=== PATIENT | female | born 1935 | race Caucasian/White ===

== ENCOUNTER 2018-05-12 21:36 | Inpatient (IN) | payer MEDICARE, MEDICAID ==
[~2018-05-12] VITALS: Ht 157.5 cm; Wt 53.4 kg
[2018-05-12 22:12] LABS: Basophils # (auto) 0 uL; Basophils % (auto) 0.6 % (0.0-2.0); Eosinophils # (auto) 0.2 uL; Eosinophils % (auto) 3.5 % (0.0-7.0); Hematocrit 42.5 % (36.0-46.0); Hemoglobin 14.6 g/dL (12.2-16.2); Lymphocytes # (auto) 0.6 uL; Lymphocytes % (auto) 12.7 % (10.0-50.0); Mean Corpuscular Hemoglobin 34.7 pg (28.0-32.0); Mean Corpuscular Hgb Conc. 34.2 g/dL (32.0-36.0); Mean Corpuscular Volume 101.4 fL (80.0-100.0); Monocytes # (auto) 0.4 uL; Monocytes % (auto) 7.8 % (0.0-12.0); Neutrophils # (auto) 3.6 uL; Neutrophils % (auto) 75.4 % (37.0-80.0); Nucleated Red Blood Cells % 0.2 %; Platelet Count (auto) 142 10^3/uL (140-450); Red Blood Cells 4.19 10^6/uL (4.0-5.20); Red Cell Distribution Width 12.4 % (11.8-14.3); White Blood Cell 4.8 10^3/uL (4.4-10.8)
[2018-05-12 22:34] LABS: Albumin 2.8 g/dL (3.4-5.0); BUN/Creatinine Ratio 22.6; Calcium 7.7 mg/dL (8.5-10.1); Potassium 3.8 mmol/L (3.5-5.1)
[2018-05-12 22:39] LABS: Bilirubin, Total 2.1 mg/dL (0.2-1.0); Total Protein 6.8 g/dL (6.4-8.2)
[2018-05-13] MEDS ORDERED: ALBUTEROL SULF 2.5 MG/0.5ML(0.5%) NEB SOLN HHN STA (02:05)
[2018-05-13] MEDS ORDERED: IPRATROPIUM BROM 0.5 MG/2.5ML INH SOL NEB ONE (02:15)
[2018-05-13] MEDS ORDERED: cefTRIAXone 1GM/10ml IVPUSH 10 ML IV ONE (02:15)
[2018-05-13] MEDS ORDERED: LEVOFLOXACIN 250 MG TAB PO ONE (02:15)
[2018-05-13] MEDS ORDERED: methylPREDNISolone SOD SUCC 125 MG/2 ML VL IV ONE (02:15)
[2018-05-13] MEDS ORDERED: TEMAZEPAM 15 MG CAP PO PRN (04:30)
[2018-05-13] MEDS ORDERED: SODIUM CHLORIDE 0.9% 1,000 ML IV ONE (04:30)
[2018-05-13] MEDS ORDERED: ACETAMINOPHEN 500 MG TAB PO PRN (04:30)
[2018-05-13] MEDS ORDERED: ONDANSETRON HCL 4 MG/2 ML VIAL IV PRN (04:30)
[2018-05-13] MEDS ORDERED: LORazepam 2MG/ML-1ML VIAL IV PRN (04:30)
[2018-05-13] MEDS ORDERED: ALBUTEROL SULF 2.5 MG/0.5ML(0.5%) NEB SOLN NEB PRN (04:45)
[2018-05-13 05:42] LABS: Urine Bacteria NONE SEEN /hpf (None Seen); Urine Blood Negative /uL (Negative); Urine Specific Gravity 1.027 (1.001-1.035); Urine WBC 3 /hpf (0 - 5)
[2018-05-13] MEDS: ALBUTEROL SULF 2.5 MG/0.5ML(0.5%) NEB SOLN NEB SCH ×4 (07:35→23:34)
[2018-05-13] MEDS: IPRATROPIUM BROM 0.5 MG/2.5ML INH SOL NEB SCH ×4 (07:35→23:34)
[2018-05-13 08:47] LABS: Basophils # (auto) 0 uL; Basophils % (auto) 0.2 % (0.0-2.0); Eosinophils # (auto) 0 uL; Eosinophils % (auto) 0.8 % (0.0-7.0); Hematocrit 44.3 % (36.0-46.0); Hemoglobin 14.7 g/dL (12.2-16.2); Lymphocytes # (auto) 0.5 uL; Lymphocytes % (auto) 12.4 % (10.0-50.0); Mean Corpuscular Hemoglobin 33.8 pg (28.0-32.0); Mean Corpuscular Hgb Conc. 33.2 g/dL (32.0-36.0); Mean Corpuscular Volume 101.8 fL (80.0-100.0); Monocytes # (auto) 0.3 uL; Monocytes % (auto) 7.1 % (0.0-12.0); Neutrophils # (auto) 3.3 uL; Neutrophils % (auto) 79.5 % (37.0-80.0); Nucleated Red Blood Cells % 0.1 %; Platelet Count (auto) 139 10^3/uL (140-450); Red Blood Cells 4.35 10^6/uL (4.0-5.20); Red Cell Distribution Width 12.8 % (11.8-14.3); White Blood Cell 4.1 10^3/uL (4.4-10.8)
[2018-05-13] MEDS: PANTOPRAZOLE 40 MG TAB PO SCH (08:55)
[2018-05-13] MEDS: PHENYTOIN SODIUM 100 MG CAP PO SCH ×3 (08:55→22:00)
[2018-05-13 09:02] LABS: Calcium 7.5 mg/dL (8.5-10.1)
[2018-05-13 09:12] LABS: BUN/Creatinine Ratio 22.9
[2018-05-13] MEDS: LEVOTHYROXINE SODIUM 25 MCG TAB PO SCH (09:12)
[2018-05-13] MEDS: CARBIDOPA W LEVODOPA 25/100mg TABLET PO SCH ×3 (09:12→22:01)
[2018-05-13] MEDS: AZITHROMYCIN 500MG/ 250ML 250 ML IV SCH (10:22)
[2018-05-13] MEDS: LEVETIRACETAM 500 MG TAB PO SCH ×2 (10:22→22:01)
[2018-05-13 17:00] VITALS: BP 115/54
[2018-05-13 17:14] VITALS: BP 159/87
[2018-05-13] MEDS ORDERED: HYDR-4683 PO (17:20)
[2018-05-13] MEDS ORDERED: BACL10TA PO (17:20)
[2018-05-13] MEDS ORDERED: PHE100C PO (17:20)
[2018-05-13] MEDS ORDERED: MULT1TAB61 PO (17:20)
[2018-05-13] MEDS ORDERED: CYAN1TAB14 PO (17:20)
[2018-05-13] MEDS ORDERED: SENN1TAB14 PO (17:20)
[2018-05-13] MEDS ORDERED: CARB25TA22 PO (17:20)
[2018-05-13] MEDS ORDERED: LEVO50TA7 PO (17:20)
[2018-05-13] MEDS ORDERED: SULF-92 PO (17:20)
[2018-05-13] MEDS ORDERED: DIPH2.5T73 PO (17:20)
[2018-05-13] MEDS ORDERED: LACT10SO3 PO (17:20)
[2018-05-13] MEDS ORDERED: LEVE100020 PO (17:20)
[2018-05-13] MEDS ORDERED: ALEN1TAB32 PO (17:20)
[2018-05-13] MEDS ORDERED: PANT1INJ3 IV (17:20)
[2018-05-13] MEDS ORDERED: DOCU100T15 PO (17:20)
[2018-05-13] MEDS ORDERED: LATA0.0015 OP (17:20)
[2018-05-13] MEDS ORDERED: PANT40TA2 PO (17:20)
[2018-05-13 18:00] VITALS: BP 115/54
[2018-05-13 22:00] VITALS: BP 125/72
[2018-05-13] MEDS: BACLOFEN 10 MG TAB PO SCH (22:01)
[2018-05-14 05:00] VITALS: BP 115/63
[2018-05-14] MEDS: CARBIDOPA W LEVODOPA 25/100mg TABLET PO SCH ×3 (06:07→21:53)
[2018-05-14] MEDS: PHENYTOIN SODIUM 100 MG CAP PO SCH ×3 (06:07→21:53)
[2018-05-14] MEDS: LEVOTHYROXINE SODIUM 25 MCG TAB PO SCH (06:07)
[2018-05-14] MEDS: ALBUTEROL SULF 2.5 MG/0.5ML(0.5%) NEB SOLN NEB SCH ×3 (06:20→18:06)
[2018-05-14] MEDS: IPRATROPIUM BROM 0.5 MG/2.5ML INH SOL NEB SCH ×3 (06:20→18:06)
[2018-05-14] MEDS: LEVETIRACETAM 500 MG TAB PO SCH ×2 (08:49→21:53)
[2018-05-14] MEDS: AZITHROMYCIN 500MG/ 250ML 250 ML IV SCH (08:50)
[2018-05-14] MEDS: PANTOPRAZOLE 40 MG TAB PO SCH (08:57)
[2018-05-14 09:00] VITALS: BP 111/69
[2018-05-14] MEDS ORDERED: cefTRIAXone 1GM/10ml IVPUSH 10 ML IV SCH (09:00)
[2018-05-14] MEDS ORDERED: LEVOFLOXACIN 500 MG TAB PO ONE (11:15)
[2018-05-14 13:00] VITALS: BP 115/72
[2018-05-14 17:00] VITALS: BP 114/75
[2018-05-14] MEDS: BACLOFEN 10 MG TAB PO SCH (21:53)
[2018-05-14 22:02] VITALS: BP 123/69
[2018-05-14 23:26] VITALS: BP 124/67
[2018-05-15] MEDS: ALBUTEROL SULF 2.5 MG/0.5ML(0.5%) NEB SOLN NEB SCH ×4 (00:06→18:32)
[2018-05-15] MEDS: IPRATROPIUM BROM 0.5 MG/2.5ML INH SOL NEB SCH ×4 (00:06→18:32)
[2018-05-15 04:53] VITALS: BP 120/71
[2018-05-15 05:15] LABS: Basophils # (auto) 0 uL; Eosinophils # (auto) 0.3 uL; Eosinophils % (auto) 3.6 % (0.0-7.0); Lymphocytes # (auto) 1.3 uL; Neutrophils # (auto) 4.9 uL
[2018-05-15 05:16] LABS: Basophils % (auto) 0.2 % (0.0-2.0); Hematocrit 40.5 % (36.0-46.0); Hemoglobin 14.1 g/dL (12.2-16.2); Lymphocytes % (auto) 17.1 % (10.0-50.0); Mean Corpuscular Hgb Conc. 34.8 g/dL (32.0-36.0); Mean Corpuscular Volume 100.6 fL (80.0-100.0); Monocytes % (auto) 13.3 % (0.0-12.0); Neutrophils % (auto) 65.8 % (37.0-80.0); Nucleated Red Blood Cells % 0.1 %; Platelet Count (auto) 171 10^3/uL (140-450); Red Blood Cells 4.02 10^6/uL (4.0-5.20); Red Cell Distribution Width 12.7 % (11.8-14.3); White Blood Cell 7.4 10^3/uL (4.4-10.8)
[2018-05-15 05:39] LABS: Albumin 2.3 g/dL (3.4-5.0); Bilirubin, Direct 3.5 mg/dL (0-0.2); Bilirubin, Total 4.1 mg/dL (0.2-1.0); Magnesium 2.3 mg/dL (1.6-2.6); Total Protein 6.3 g/dL (6.4-8.2)
[2018-05-15] MEDS: PHENYTOIN SODIUM 100 MG CAP PO SCH ×3 (06:26→22:39)
[2018-05-15] MEDS: LEVOTHYROXINE SODIUM 25 MCG TAB PO SCH (06:27)
[2018-05-15] MEDS: CARBIDOPA W LEVODOPA 25/100mg TABLET PO SCH ×3 (06:27→22:39)
[2018-05-15 08:21] LABS: BUN/Creatinine Ratio 29.5; Calcium 7.5 mg/dL (8.5-10.1); Potassium 4.2 mmol/L (3.5-5.1)
[2018-05-15 09:00] VITALS: BP 116/67
[2018-05-15] MEDS ORDERED: LEVOFLOXACIN 250 MG TAB PO ONE (09:00)
[2018-05-15] MEDS ORDERED: SOD CHL 0.45% 1,000 ML IV ONE (09:00)
[2018-05-15] MEDS ORDERED: LEVOFLOXACIN 250 MG TAB PO SCH (10:00)
[2018-05-15] MEDS ORDERED: LEVOFLOXACIN 500 MG TAB PO SCH (10:00)
[2018-05-15] MEDS: PANTOPRAZOLE 40 MG TAB PO SCH (10:09)
[2018-05-15] MEDS: LEVETIRACETAM 500 MG TAB PO SCH ×2 (10:10→22:39)
[2018-05-15] MEDS ORDERED: IOHEXOL 350 MG/ML 100ML IJ ONE (11:09)
[2018-05-15 13:00] VITALS: BP_SYST 122; BP_SYST 136; BP_DIAS 66; BP_DIAS 71
[2018-05-15 17:00] VITALS: BP 126/67
[2018-05-15 22:00] VITALS: BP 119/68
[2018-05-15] MEDS: BACLOFEN 10 MG TAB PO SCH (22:39)
[2018-05-15 23:40] VITALS: BP 115/54
[2018-05-16 04:53] VITALS: BP 127/67
[2018-05-16] MEDS: IPRATROPIUM BROM 0.5 MG/2.5ML INH SOL NEB SCH ×4 (05:36→18:25)
[2018-05-16] MEDS: ALBUTEROL SULF 2.5 MG/0.5ML(0.5%) NEB SOLN NEB SCH ×4 (05:37→18:25)
[2018-05-16 05:54] LABS: BUN/Creatinine Ratio 26.1; Calcium 7.8 mg/dL (8.5-10.1); Potassium 3.7 mmol/L (3.5-5.1)
[2018-05-16 05:55] LABS: Basophils # (auto) 0 uL; Eosinophils # (auto) 0.2 uL
[2018-05-16 06:04] LABS: Basophils % (auto) 0.3 % (0.0-2.0); Eosinophils % (auto) 3.2 % (0.0-7.0); Hematocrit 36.8 % (36.0-46.0); Hemoglobin 12.7 g/dL (12.2-16.2); Lymphocytes # (auto) 1.6 uL; Lymphocytes % (auto) 21.6 % (10.0-50.0); Mean Corpuscular Hemoglobin 34.5 pg (28.0-32.0); Mean Corpuscular Hgb Conc. 34.4 g/dL (32.0-36.0); Mean Corpuscular Volume 100.2 fL (80.0-100.0); Monocytes % (auto) 13.4 % (0.0-12.0); Neutrophils # (auto) 4.5 uL; Neutrophils % (auto) 61.5 % (37.0-80.0); Platelet Count (auto) 211 10^3/uL (140-450); Red Blood Cells 3.68 10^6/uL (4.0-5.20); Red Cell Distribution Width 12.7 % (11.8-14.3); White Blood Cell 7.2 10^3/uL (4.4-10.8)
[2018-05-16] MEDS: PHENYTOIN SODIUM 100 MG CAP PO SCH ×3 (06:15→21:26)
[2018-05-16] MEDS: LEVOTHYROXINE SODIUM 25 MCG TAB PO SCH (06:15)
[2018-05-16] MEDS: CARBIDOPA W LEVODOPA 25/100mg TABLET PO SCH ×3 (06:16→21:26)
[2018-05-16] MEDS: PANTOPRAZOLE 40 MG TAB PO SCH (07:34)
[2018-05-16 08:00] VITALS: BP 126/70
[2018-05-16] MEDS ORDERED: SOD CHL 0.45% 1,000 ML IV ONE (09:45)
[2018-05-16] MEDS: LEVOFLOXACIN 250 MG TAB PO SCH (10:26)
[2018-05-16] MEDS: LEVETIRACETAM 500 MG TAB PO SCH ×2 (10:26→21:26)
[2018-05-16 12:52] VITALS: BP 119/62
[2018-05-16 17:20] VITALS: BP 124/71
[2018-05-16 17:25] VITALS: BP 124/71
[2018-05-16] MEDS: BACLOFEN 10 MG TAB PO SCH (21:26)
[2018-05-16 21:30] VITALS: BP 131/79
[2018-05-17 05:00] VITALS: BP 140/81
[2018-05-17 05:08] LABS: Eosinophils # (auto) 0.1 uL; Hemoglobin 13.2 g/dL (12.2-16.2); Lymphocytes # (auto) 1.1 uL; Neutrophils # (auto) 5.6 uL; Platelet Count (auto) 289 10^3/uL (140-450)
[2018-05-17 05:10] LABS: Basophils # (auto) 0 uL; Basophils % (auto) 0.4 % (0.0-2.0); Eosinophils % (auto) 1.5 % (0.0-7.0); Hematocrit 37.9 % (36.0-46.0); Lymphocytes % (auto) 14.3 % (10.0-50.0); Monocytes # (auto) 1.1 uL; Monocytes % (auto) 13.8 % (0.0-12.0); Red Blood Cells 3.78 10^6/uL (4.0-5.20); Red Cell Distribution Width 12.6 % (11.8-14.3)
[2018-05-17] MEDS: CARBIDOPA W LEVODOPA 25/100mg TABLET PO SCH ×3 (05:25→22:27)
[2018-05-17 05:27] LABS: Potassium 3.8 mmol/L (3.5-5.1)
[2018-05-17] MEDS: PHENYTOIN SODIUM 100 MG CAP PO SCH ×3 (05:28→22:31)
[2018-05-17 05:45] LABS: Albumin 2.3 g/dL (3.4-5.0); Bilirubin, Direct 6.6 mg/dL (0-0.2); Bilirubin, Total 7.6 mg/dL (0.2-1.0); Total Protein 6.7 g/dL (6.4-8.2)
[2018-05-17] MEDS: LEVOTHYROXINE SODIUM 25 MCG TAB PO SCH (06:06)
[2018-05-17] MEDS: PANTOPRAZOLE 40 MG TAB PO SCH (06:31)
[2018-05-17] MEDS: ALBUTEROL SULF 2.5 MG/0.5ML(0.5%) NEB SOLN NEB SCH ×4 (06:44→19:25)
[2018-05-17] MEDS: IPRATROPIUM BROM 0.5 MG/2.5ML INH SOL NEB SCH ×4 (06:44→19:25)
[2018-05-17 08:00] VITALS: BP 134/82
[2018-05-17] MEDS ORDERED: LACTULOSE 20Gm/30ML SOLN PO ONE (10:00)
[2018-05-17] MEDS: DOCUSATE SOD 100 MG CAP PO SCH ×2 (10:48→22:30)
[2018-05-17] MEDS: LEVETIRACETAM 500 MG TAB PO SCH ×2 (10:48→22:31)
[2018-05-17 12:00] VITALS: BP 141/74
[2018-05-17 16:00] VITALS: BP 141/68
[2018-05-17 22:03] VITALS: BP 132/87
[2018-05-17] MEDS: BACLOFEN 10 MG TAB PO SCH (22:24)
[2018-05-18] MEDS: IPRATROPIUM BROM 0.5 MG/2.5ML INH SOL NEB SCH ×4 (01:05→19:16)
[2018-05-18] MEDS: ALBUTEROL SULF 2.5 MG/0.5ML(0.5%) NEB SOLN NEB SCH ×4 (01:05→19:15)
[2018-05-18 05:35] VITALS: BP 119/67
[2018-05-18 05:52] LABS: Eosinophils # (auto) 0.1 uL; Lymphocytes # (auto) 1.1 uL; White Blood Cell 9.3 10^3/uL (4.4-10.8)
[2018-05-18 05:54] LABS: Basophils # (auto) 0 uL; Basophils % (auto) 0.4 % (0.0-2.0); Eosinophils % (auto) 0.7 % (0.0-7.0); Hematocrit 36.7 % (36.0-46.0); Lymphocytes % (auto) 11.9 % (10.0-50.0); Mean Corpuscular Hemoglobin 35.4 pg (28.0-32.0); Mean Corpuscular Hgb Conc. 35.4 g/dL (32.0-36.0); Monocytes # (auto) 1.4 uL; Neutrophils # (auto) 6.7 uL; Platelet Count (auto) 346 10^3/uL (140-450); Red Blood Cells 3.67 10^6/uL (4.0-5.20); Red Cell Distribution Width 12.5 % (11.8-14.3)
[2018-05-18 06:12] LABS: Albumin 2.2 g/dL (3.4-5.0); BUN/Creatinine Ratio 21.9; Bilirubin, Total 9.1 mg/dL (0.2-1.0); Calcium 8.1 mg/dL (8.5-10.1); Potassium 3.5 mmol/L (3.5-5.1)
[2018-05-18] MEDS: CARBIDOPA W LEVODOPA 25/100mg TABLET PO SCH ×3 (06:18→21:32)
[2018-05-18] MEDS: PHENYTOIN SODIUM 100 MG CAP PO SCH ×3 (06:24→21:32)
[2018-05-18] MEDS: LEVOTHYROXINE SODIUM 25 MCG TAB PO SCH (06:32)
[2018-05-18] MEDS: PANTOPRAZOLE 40 MG TAB PO SCH (07:30)
[2018-05-18 09:00] VITALS: BP 132/60
[2018-05-18] MEDS: DOCUSATE SOD 100 MG CAP PO SCH ×2 (09:54→21:32)
[2018-05-18] MEDS: LEVOFLOXACIN 250 MG TAB PO SCH (09:54)
[2018-05-18] MEDS: LEVETIRACETAM 500 MG TAB PO SCH ×2 (09:55→21:32)
[2018-05-18 13:00] VITALS: BP 126/70
[2018-05-18 17:00] VITALS: BP 125/61
[2018-05-18] MEDS: BACLOFEN 10 MG TAB PO SCH (21:32)
[2018-05-18 22:30] VITALS: BP 126/75
[2018-05-19] MEDS: IPRATROPIUM BROM 0.5 MG/2.5ML INH SOL NEB SCH ×5 (00:16→23:51)
[2018-05-19] MEDS: ALBUTEROL SULF 2.5 MG/0.5ML(0.5%) NEB SOLN NEB SCH ×5 (00:16→23:51)
[2018-05-19 05:03] VITALS: BP 125/72
[2018-05-19 05:59] LABS: Basophils # (auto) 0.1 uL; Eosinophils # (auto) 0.1 uL; Hemoglobin 12.2 g/dL (12.2-16.2); Mean Corpuscular Hgb Conc. 35.1 g/dL (32.0-36.0); Neutrophils # (auto) 6.3 uL; Nucleated Red Blood Cells % 0.1 %; White Blood Cell 9.2 10^3/uL (4.4-10.8)
[2018-05-19] MEDS: PHENYTOIN SODIUM 100 MG CAP PO SCH ×3 (06:00→21:48)
[2018-05-19 06:02] LABS: Basophils % (auto) 0.7 % (0.0-2.0); Eosinophils % (auto) 1.3 % (0.0-7.0); Hematocrit 34.6 % (36.0-46.0); Lymphocytes # (auto) 1.3 uL; Lymphocytes % (auto) 13.7 % (10.0-50.0); Mean Corpuscular Hemoglobin 34.8 pg (28.0-32.0); Mean Corpuscular Volume 98.9 fL (80.0-100.0); Monocytes # (auto) 1.5 uL; Monocytes % (auto) 16.6 % (0.0-12.0); Neutrophils % (auto) 67.7 % (37.0-80.0); Platelet Count (auto) 450 10^3/uL (140-450); Red Cell Distribution Width 12.9 % (11.8-14.3)
[2018-05-19 06:34] LABS: BUN/Creatinine Ratio 24.6; Bilirubin, Total 10.1 mg/dL (0.2-1.0); Calcium 8.1 mg/dL (8.5-10.1); Potassium 4.1 mmol/L (3.5-5.1); Total Protein 6.7 g/dL (6.4-8.2)
[2018-05-19] MEDS: CARBIDOPA W LEVODOPA 25/100mg TABLET PO SCH ×3 (06:54→21:47)
[2018-05-19] MEDS: LEVOTHYROXINE SODIUM 25 MCG TAB PO SCH (06:54)
[2018-05-19] MEDS: PANTOPRAZOLE 40 MG TAB PO SCH (06:54)
[2018-05-19 09:00] VITALS: BP 120/68
[2018-05-19] MEDS: DOCUSATE SOD 100 MG CAP PO SCH ×2 (10:00→21:47)
[2018-05-19] MEDS: LEVETIRACETAM 500 MG TAB PO SCH ×2 (10:38→21:47)
[2018-05-19 13:00] VITALS: BP 116/63
[2018-05-19 17:00] VITALS: BP 117/75
[2018-05-19 18:00] VITALS: BP 116/63
[2018-05-19] MEDS: BACLOFEN 10 MG TAB PO SCH (21:47)
[2018-05-19 21:55] VITALS: BP 133/69
[2018-05-20 04:50] VITALS: BP 121/73
[2018-05-20] MEDS: ALBUTEROL SULF 2.5 MG/0.5ML(0.5%) NEB SOLN NEB SCH ×3 (05:38→18:42)
[2018-05-20] MEDS: IPRATROPIUM BROM 0.5 MG/2.5ML INH SOL NEB SCH ×3 (05:38→18:42)
[2018-05-20] MEDS: PHENYTOIN SODIUM 100 MG CAP PO SCH ×3 (06:00→21:02)
[2018-05-20] MEDS: LEVOTHYROXINE SODIUM 25 MCG TAB PO SCH (06:28)
[2018-05-20] MEDS: CARBIDOPA W LEVODOPA 25/100mg TABLET PO SCH ×3 (06:28→21:02)
[2018-05-20] MEDS: PANTOPRAZOLE 40 MG TAB PO SCH (06:28)
[2018-05-20 06:29] LABS: Bilirubin, Direct 9.4 mg/dL (0-0.2); Bilirubin, Total 10.6 mg/dL (0.2-1.0); Total Protein 5.9 g/dL (6.4-8.2)
[2018-05-20 09:00] VITALS: BP 105/67
[2018-05-20] MEDS: LEVETIRACETAM 500 MG TAB PO SCH ×2 (09:22→21:02)
[2018-05-20] MEDS: DOCUSATE SOD 100 MG CAP PO SCH ×2 (09:22→21:02)
[2018-05-20 09:59] LABS: Hepatitis B Surface Antigen Negative (Negative)
[2018-05-20 10:18] LABS: Hepatitis B Core IgM Negative; Hepatitis C Antibody Negative (Negative)
[2018-05-20 10:19] LABS: Hepatitis A Ab IgM Negative
[2018-05-20 13:00] VITALS: BP 132/72
[2018-05-20 17:00] VITALS: BP 119/65
[2018-05-20] MEDS: Ensure HIGH Protein Chocolate 8oz Bottle PO SCH (18:24)
[2018-05-20 20:00] VITALS: BP 120/74
[2018-05-20] MEDS: BACLOFEN 10 MG TAB PO SCH (21:02)
[2018-05-20 21:50] VITALS: BP 120/74
[2018-05-21] MEDS: ALBUTEROL SULF 2.5 MG/0.5ML(0.5%) NEB SOLN NEB SCH ×4 (00:22→19:42)
[2018-05-21] MEDS: IPRATROPIUM BROM 0.5 MG/2.5ML INH SOL NEB SCH ×4 (00:22→19:41)
[2018-05-21 05:07] VITALS: BP 131/80
[2018-05-21 06:10] LABS: % Iron Saturation 25.5 % (15-50)
[2018-05-21 06:12] LABS: Albumin 1.8 g/dL (3.4-5.0); Bilirubin, Direct 9.3 mg/dL (0-0.2); Bilirubin, Total 10.4 mg/dL (0.2-1.0); Total Protein 6.5 g/dL (6.4-8.2)
[2018-05-21] MEDS: CARBIDOPA W LEVODOPA 25/100mg TABLET PO SCH ×3 (06:22→21:44)
[2018-05-21] MEDS: LEVOTHYROXINE SODIUM 25 MCG TAB PO SCH (06:22)
[2018-05-21] MEDS: PANTOPRAZOLE 40 MG TAB PO SCH (06:22)
[2018-05-21] MEDS: PHENYTOIN SODIUM 100 MG CAP PO SCH ×3 (06:22→21:44)
[2018-05-21 08:00] VITALS: BP 115/66
[2018-05-21] MEDS: Ensure HIGH Protein Chocolate 8oz Bottle PO SCH ×3 (08:01→17:44)
[2018-05-21 09:06] LABS: INR 1.63 (0.9-1.15)
[2018-05-21] MEDS ORDERED: MIDAZOLAM HCL 1MG/1ML-2 ML VIAL ONE (09:08)
[2018-05-21] MEDS ORDERED: fentaNYL CITRATE 100 MCG/2 ML VL ONE (09:09)
[2018-05-21] MEDS ORDERED: PHYTONADIONE ORAL Susp 10 mg/10ml PO ONE (09:30)
[2018-05-21] MEDS: DOCUSATE SOD 100 MG CAP PO SCH ×2 (10:05→21:44)
[2018-05-21] MEDS: LEVETIRACETAM 500 MG TAB PO SCH ×2 (10:06→21:44)
[2018-05-21 12:00] VITALS: BP 128/73
[2018-05-21] MEDS ORDERED: LIDOCAINE 2% (LOCAL ANESTH.) PF 5ml SDV ONE (12:51)
[2018-05-21] MEDS ORDERED: GELATIN 1 SPONGE SIZE 100 TOP ONE (13:07)
[2018-05-21 16:00] VITALS: BP 120/70
[2018-05-21] MEDS: BACLOFEN 10 MG TAB PO SCH (21:44)
[2018-05-21 22:00] VITALS: BP 119/72
[2018-05-22] VITALS (7 sets, daily range): BP systolic 105–144; BP diastolic 57–82
[2018-05-22] MEDS: IPRATROPIUM BROM 0.5 MG/2.5ML INH SOL NEB SCH ×4 (00:34→19:03)
[2018-05-22] MEDS: ALBUTEROL SULF 2.5 MG/0.5ML(0.5%) NEB SOLN NEB SCH ×4 (00:34→19:04)
[2018-05-22 06:12] LABS: Basophils # (auto) 0.1 uL; Basophils % (auto) 1.3 % (0.0-2.0); Eosinophils # (auto) 0.1 uL; Eosinophils % (auto) 1.5 % (0.0-7.0); Hematocrit 32.9 % (36.0-46.0); Hemoglobin 11.5 g/dL (12.2-16.2); Lymphocytes # (auto) 1.4 uL; Lymphocytes % (auto) 18.8 % (10.0-50.0); Mean Corpuscular Hemoglobin 34.4 pg (28.0-32.0); Mean Corpuscular Hgb Conc. 35.1 g/dL (32.0-36.0); Monocytes # (auto) 1.1 uL; Monocytes % (auto) 14.8 % (0.0-12.0); Neutrophils # (auto) 4.7 uL; Neutrophils % (auto) 63.6 % (37.0-80.0); Nucleated Red Blood Cells % 0.1 %; Platelet Count (auto) 507 10^3/uL (140-450); Red Blood Cells 3.35 10^6/uL (4.0-5.20); Red Cell Distribution Width 12.6 % (11.8-14.3); White Blood Cell 7.3 10^3/uL (4.4-10.8)
[2018-05-22] MEDS: PANTOPRAZOLE 40 MG TAB PO SCH (06:27)
[2018-05-22] MEDS: PHENYTOIN SODIUM 100 MG CAP PO SCH ×3 (06:27→22:23)
[2018-05-22] MEDS: LEVOTHYROXINE SODIUM 25 MCG TAB PO SCH (06:27)
[2018-05-22] MEDS: CARBIDOPA W LEVODOPA 25/100mg TABLET PO SCH ×3 (06:27→22:24)
[2018-05-22 06:33] LABS: BUN/Creatinine Ratio 35.6; Calcium 8.7 mg/dL (8.5-10.1)
[2018-05-22 07:02] LABS: Albumin 1.9 g/dL (3.4-5.0); Bilirubin, Direct 10.1 mg/dL (0-0.2); Bilirubin, Total 11.4 mg/dL (0.2-1.0); Total Protein 6.6 g/dL (6.4-8.2)
[2018-05-22] MEDS: Ensure HIGH Protein Chocolate 8oz Bottle PO SCH ×3 (08:00→18:08)
[2018-05-22] MEDS: LEVETIRACETAM 500 MG TAB PO SCH ×2 (10:35→22:23)
[2018-05-22] MEDS: DOCUSATE SOD 100 MG CAP PO SCH ×2 (10:35→22:23)
[2018-05-22] MEDS: BACLOFEN 10 MG TAB PO SCH (22:23)
[2018-05-23] MEDS: ALBUTEROL SULF 2.5 MG/0.5ML(0.5%) NEB SOLN NEB SCH ×4 (00:52→18:08)
[2018-05-23] MEDS: IPRATROPIUM BROM 0.5 MG/2.5ML INH SOL NEB SCH ×4 (00:52→18:08)
[2018-05-23 05:15] VITALS: BP 123/63
[2018-05-23 05:47] LABS: Mean Corpuscular Volume 98.4 fL (80.0-100.0); White Blood Cell 7.9 10^3/uL (4.4-10.8)
[2018-05-23 05:49] LABS: Hematocrit 32.2 % (36.0-46.0); Hemoglobin 11.4 g/dL (12.2-16.2); Mean Corpuscular Hemoglobin 34.7 pg (28.0-32.0); Mean Corpuscular Hgb Conc. 35.3 g/dL (32.0-36.0); Platelet Count (auto) 506 10^3/uL (140-450); Red Blood Cells 3.27 10^6/uL (4.0-5.20); Red Cell Distribution Width 12.4 % (11.8-14.3)
[2018-05-23 05:52] LABS: Band Neutrophils % (manual) 0; Basophils % (manual) 0 (0.0-2.0); Blast Cells 0; Metamyelocytes % 0; Myelocytes % 0; Promyelocytes % 0
[2018-05-23 06:22] LABS: Albumin 1.8 g/dL (3.4-5.0); Bilirubin, Direct 10.2 mg/dL (0-0.2); Bilirubin, Total 11.5 mg/dL (0.2-1.0); Total Protein 6.5 g/dL (6.4-8.2)
[2018-05-23 06:25] LABS: BUN/Creatinine Ratio 41.3; Calcium 8.6 mg/dL (8.5-10.1); Potassium 3.8 mmol/L (3.5-5.1)
[2018-05-23] MEDS: CARBIDOPA W LEVODOPA 25/100mg TABLET PO SCH ×3 (06:25→21:28)
[2018-05-23] MEDS: PANTOPRAZOLE 40 MG TAB PO SCH (06:25)
[2018-05-23] MEDS: LEVOTHYROXINE SODIUM 25 MCG TAB PO SCH (06:25)
[2018-05-23] MEDS: PHENYTOIN SODIUM 100 MG CAP PO SCH (06:27)
[2018-05-23 06:36] LABS: Eosinophils % (manual) 6 (0-7); Lymphocytes % (manual) 11 (10.0-50.0); Monocytes % (manual) 10 (0-12); Reactive Lymphocytes 2
[2018-05-23] MEDS: Ensure HIGH Protein Chocolate 8oz Bottle PO SCH ×3 (08:00→18:18)
[2018-05-23] MEDS: DOCUSATE SOD 100 MG CAP PO SCH ×2 (09:56→21:28)
[2018-05-23] MEDS: LEVETIRACETAM 500 MG TAB PO SCH ×2 (09:56→21:27)
[2018-05-23 10:33] VITALS: BP 118/69
[2018-05-23 13:59] VITALS: BP 137/49
[2018-05-23 17:05] VITALS: BP 116/65
[2018-05-23] MEDS: BACLOFEN 10 MG TAB PO SCH (21:28)
[2018-05-23 22:00] VITALS: BP 120/72
[2018-05-24] MEDS: IPRATROPIUM BROM 0.5 MG/2.5ML INH SOL NEB SCH ×4 (00:16→20:04)
[2018-05-24] MEDS: ALBUTEROL SULF 2.5 MG/0.5ML(0.5%) NEB SOLN NEB SCH ×4 (00:16→20:04)
[2018-05-24 05:00] VITALS: BP 121/76
[2018-05-24 05:17] LABS: Hemoglobin 11.5 g/dL (12.2-16.2)
[2018-05-24 05:20] LABS: Hematocrit 32.5 % (36.0-46.0); Mean Corpuscular Hgb Conc. 35.4 g/dL (32.0-36.0); Mean Corpuscular Volume 98.9 fL (80.0-100.0); Platelet Count (auto) 463 10^3/uL (140-450); Red Blood Cells 3.29 10^6/uL (4.0-5.20); Red Cell Distribution Width 12.5 % (11.8-14.3); White Blood Cell 7.4 10^3/uL (4.4-10.8)
[2018-05-24 05:23] LABS: Basophils % (manual) 0 (0.0-2.0); Blast Cells 0; Metamyelocytes % 0; Myelocytes % 0; Promyelocytes % 0; Reactive Lymphocytes 0
[2018-05-24 05:36] LABS: Calcium 8.6 mg/dL (8.5-10.1); Potassium 3.6 mmol/L (3.5-5.1)
[2018-05-24 05:42] LABS: Band Neutrophils % (manual) 2; Eosinophils % (manual) 2 (0-7); Lymphocytes % (manual) 23 (10.0-50.0); Monocytes % (manual) 10 (0-12)
[2018-05-24] MEDS: PANTOPRAZOLE 40 MG TAB PO SCH (06:17)
[2018-05-24] MEDS: LEVOTHYROXINE SODIUM 25 MCG TAB PO SCH (06:17)
[2018-05-24 09:00] VITALS: BP 126/93
[2018-05-24] MEDS: DOCUSATE SOD 100 MG CAP PO SCH ×3 (09:33→23:00)
[2018-05-24] MEDS: CARBIDOPA W LEVODOPA 25/100mg TABLET PO SCH ×2 (09:33→23:00)
[2018-05-24] MEDS: Ensure HIGH Protein Chocolate 8oz Bottle PO SCH ×3 (09:33→18:00)
[2018-05-24] MEDS: LEVETIRACETAM 500 MG TAB PO SCH ×2 (09:33→23:00)
[2018-05-24 13:00] VITALS: BP 117/64
[2018-05-24 13:45] LABS: Bilirubin, Direct 10.3 mg/dL (0-0.2); Bilirubin, Total 11.6 mg/dL (0.2-1.0); Total Protein 6.9 g/dL (6.4-8.2)
[2018-05-24 16:28] VITALS: BP 112/74
[2018-05-24 21:47] VITALS: BP 128/68
[2018-05-24] MEDS: BACLOFEN 10 MG TAB PO SCH (23:00)
[2018-05-24 23:01] VITALS: BP 128/68
[2018-05-25] MEDS: ALBUTEROL SULF 2.5 MG/0.5ML(0.5%) NEB SOLN NEB SCH (01:10)
[2018-05-25] MEDS: IPRATROPIUM BROM 0.5 MG/2.5ML INH SOL NEB SCH (01:10)
== END 2018-05-25 01:51 | DRG 177 ==
LOC: EDBD 21:36 → ER 21:41 → OVERFLOW 21:42 → CENTRAL 05-13 16:42
PROVIDERS: ADMIT Nurse Practitioner Family; ATTEND Internal Medicine Pulmonary Disease
PROC: 0FB03ZX Excision of Liver, Percutaneous Approach, Diagnostic (ICD-10-PCS; principal; 2018-05-22)
DX: J69.0 Pneumonitis due to inhalation of food and vomit (principal); E43 Unspecified severe protein-calorie malnutrition; J96.01 Acute respiratory failure with hypoxia; K83.1 Obstruction of bile duct; J98.11 Atelectasis; E87.2 Acidosis; E87.1 Hypo-osmolality and hyponatremia; J90 Pleural effusion, not elsewhere classified; R17 Unspecified jaundice; E83.51 Hypocalcemia; E03.9 Hypothyroidism, unspecified; T42.0X5A Adverse effect of hydantoin derivatives, initial encounter; G30.9 Alzheimer's disease, unspecified; F02.80 Dementia in other diseases classified elsewhere, unspecified severity, without behavioral disturbance, psychotic disturbance, mood disturbance, and anxiety; J44.9 Chronic obstructive pulmonary disease, unspecified; M62.838 Other muscle spasm; G20 Parkinson's disease; G40.409 Other generalized epilepsy and epileptic syndromes, not intractable, without status epilepticus; M81.0 Age-related osteoporosis without current pathological fracture; K21.9 Gastro-esophageal reflux disease without esophagitis; R00.0 Tachycardia, unspecified; Z88.6 Allergy status to analgesic agent; Z80.0 Family history of malignant neoplasm of digestive organs; Z88.5 Allergy status to narcotic agent; Y92.89 Other specified places as the place of occurrence of the external cause; Z68.21 Body mass index [BMI] 21.0-21.9, adult
CPT/HCPCS: 10022; 36415; 36600; 47000; 71045; 71275; 74181; 76705; 77012; 80048; 80053; 80074; 80076; 80185; 81001; 82105; 82390; 82542; 82805; 82962; 83516; 83540; 83550; 83605; 83735; 83880; 84443; 84484; 85007; 85025; 85027; 85610; 85730; 86225; 86235; 86301; 87040; 87081; 87086; 93005; 93306; 94640; 95819; 96374; 96375; 97110; 97116; 97163; 97530; J0696; J2001; J2250; J2405

== ENCOUNTER 2018-06-20 09:43 | Inpatient (IN) | payer MEDICARE, MEDICAID ==
[~2018-06-20] VITALS: Ht 152.4 cm; Wt 49.1 kg
[~2018-06-20 09:43] MED LIST: ALEN1TAB32 PO; BACL10TA PO; CARB25TA22 PO; CYAN1TAB14 PO; DIPH2.5T73 PO; DOCU100T15 PO; HYDR-4683 PO; LACT10SO3 PO; LATA0.0015 OP; LEVE100020 PO; LEVO50TA7 PO; MULT1TAB61 PO; PANT1INJ3 IV; PANT40TA2 PO; PHE100C PO; SENN1TAB14 PO; SULF-92 PO
[2018-06-20] MEDS ORDERED: SODIUM CHLORIDE 0.9% 1,000 ML IV ONE (09:57)
[2018-06-20 11:46] LABS: Hematocrit 23.2 % (36.0-46.0); Hemoglobin 7.8 g/dL (12.2-16.2); Mean Corpuscular Hgb Conc. 33.5 g/dL (32.0-36.0); Red Blood Cells 2.11 10^6/uL (4.0-5.20); White Blood Cell 16.7 10^3/uL (4.4-10.8)
[2018-06-20 11:49] LABS: Mean Corpuscular Hemoglobin 36.8 pg (28.0-32.0); Platelet Count (auto) 396 10^3/uL (140-450); Red Cell Distribution Width 19.5 % (11.8-14.3)
[2018-06-20 11:56] LABS: Basophils % (manual) 0 (0.0-2.0); Blast Cells 0; Eosinophils % (manual) 0 (0-7); Metamyelocytes % 0; Myelocytes % 0; Promyelocytes % 0; Reactive Lymphocytes 0
[2018-06-20 12:10] LABS: Urine Bacteria FEW /hpf (None Seen); Urine Blood Negative /uL (Negative); Urine Specific Gravity 1.016 (1.001-1.035); Urine WBC 1 /hpf (0 - 5)
[2018-06-20 12:11] LABS: Prothrombin Time 66.1 sec (9.27-12.13)
[2018-06-20] MEDS ORDERED: PIPERACILLIN-TAZOB 3.375GM 100 ML IV ONE (12:15)
[2018-06-20 12:23] LABS: Calcium 7.6 mg/dL (8.5-10.1); Potassium 4.3 mmol/L (3.5-5.1)
[2018-06-20 12:24] LABS: INR 6.89 (0.9-1.15); Partial Thromboplastin Time 76.3 sec (23.78-33.04)
[2018-06-20 12:25] LABS: Albumin 1.6 g/dL (3.4-5.0); BUN/Creatinine Ratio 34.8
[2018-06-20 12:42] LABS: Bilirubin, Total 37.2 mg/dL (0.2-1.0)
[2018-06-20 12:43] LABS: Band Neutrophils % (manual) 4; Lymphocytes % (manual) 6 (10.0-50.0); Monocytes % (manual) 6 (0-12)
[2018-06-20] MEDS: SODIUM CHLORIDE 0.9% 1,000 ML IV SCH ×2 (13:18→23:30)
[2018-06-20] MEDS ORDERED: LORazepam 0.5 MG TAB PO PRN (13:30)
[2018-06-20] MEDS ORDERED: PHYTONADIONE (VIT K)10 MG/ML 1ML VIAL SUBCUT ONE (13:30)
[2018-06-20] MEDS ORDERED: NITROGLYCERIN 0.4 MG SL TAB SL PRN (13:30)
[2018-06-20] MEDS ORDERED: TEMAZEPAM 15 MG CAP PO PRN (13:30)
[2018-06-20] MEDS ORDERED: ONDANSETRON HCL 4 MG/2 ML VIAL IV PRN (13:30)
[2018-06-20] MEDS ORDERED: LORazepam 2MG/ML-1ML VIAL IV PRN (13:30)
[2018-06-20] MEDS ORDERED: PANTOPRAZOLE 40 MG/10 ML VIAL IV ONE (13:30)
[2018-06-20] MEDS ORDERED: MORPHINE SULFATE 4 MG/ML SYR/VIAL IV PRN ×3 (13:30)
[2018-06-20 14:24] LABS: Total Protein 4.6 g/dL (6.4-8.2)
[2018-06-20 14:25] LABS: CRP High Sensitivity 2.97 mg/dL (< 0.3)
[2018-06-20 17:25] VITALS: BP 88/66
[2018-06-20 17:40] VITALS: BP 74/39
[2018-06-20] MEDS ORDERED: CEFOTETAN 1GM/D5W 50ML BAG 50 ML IV SCH (18:00)
[2018-06-20 19:52] LABS: Hematocrit 18.3 % (36.0-46.0)
[2018-06-20 20:03] LABS: Hemoglobin 6.1 g/dL (12.2-16.2)
[2018-06-21] VITALS (13 sets, daily range): BP systolic 76–108; BP diastolic 33–57
[2018-06-21] MEDS: SODIUM CHLORIDE 0.9% 1,000 ML IV SCH ×2 (05:18→12:00)
[2018-06-21 09:40] LABS: Mean Corpuscular Volume 90.7 fL (80.0-100.0)
[2018-06-21 09:41] LABS: INR 1.11 (0.9-1.15); Partial Thromboplastin Time 37.7 sec (23.78-33.04); Prothrombin Time 11.8 sec (9.27-12.13)
[2018-06-21 09:43] LABS: Hematocrit 21.3 % (36.0-46.0); Hemoglobin 7.7 g/dL (12.2-16.2); Mean Corpuscular Hemoglobin 32.8 pg (28.0-32.0); Mean Corpuscular Hgb Conc. 36.2 g/dL (32.0-36.0); Platelet Count (auto) 200 10^3/uL (140-450); Red Blood Cells 2.35 10^6/uL (4.0-5.20)
[2018-06-21] MEDS: PANTOPRAZOLE 40 MG/10 ML VIAL IV SCH (09:44)
[2018-06-21] MEDS: PHYTONADIONE (VIT K)10 MG/ML 1ML VIAL SUBCUT SCH (09:45)
[2018-06-21 09:46] LABS: Red Cell Distribution Width 30.4 % (11.8-14.3)
[2018-06-21 09:47] LABS: Albumin 1.2 g/dL (3.4-5.0); Calcium 6.5 mg/dL (8.5-10.1)
[2018-06-21 09:48] LABS: Basophils % (manual) 0 (0.0-2.0); Blast Cells 0; Eosinophils % (manual) 0 (0-7); Myelocytes % 0; Promyelocytes % 0; Reactive Lymphocytes 0
[2018-06-21 09:59] LABS: Bilirubin, Total 26.6 mg/dL (0.2-1.0); Total Protein 3.4 g/dL (6.4-8.2)
[2018-06-21 10:02] LABS: Potassium 2.7 mmol/L (3.5-5.1)
[2018-06-21] MEDS ORDERED: VANCOMYCIN PER PHARMACY 0 MG IV SCH (11:00)
[2018-06-21] MEDS: POTASSIUM CHL 20MEQ/100ML 100 ML IV SCH ×3 (12:01→18:23)
[2018-06-21] MEDS: PIPERACILLIN-TAZOB 3.375GM 100 ML IV SCH ×3 (12:01→23:51)
[2018-06-21 12:13] LABS: Band Neutrophils % (manual) 4; Lymphocytes % (manual) 4 (10.0-50.0); Metamyelocytes % 2; Monocytes % (manual) 4 (0-12)
[2018-06-21] MEDS ORDERED: VANCOMYCIN 1GM/250ML 250 ML IV ONE (15:00)
[2018-06-22] VITALS: BP 124/53
[2018-06-22 04:00] VITALS: BP 99/66
[2018-06-22 04:52] LABS: Hematocrit 24.9 % (36.0-46.0); Hemoglobin 8.5 g/dL (12.2-16.2); Mean Corpuscular Hemoglobin 31.6 pg (28.0-32.0); Mean Corpuscular Hgb Conc. 34.2 g/dL (32.0-36.0); Mean Corpuscular Volume 92.3 fL (80.0-100.0); Platelet Count (auto) 195 10^3/uL (140-450); White Blood Cell 9.8 10^3/uL (4.4-10.8)
[2018-06-22 05:05] LABS: INR 0.97 (0.9-1.15); Prothrombin Time 10.4 sec (9.27-12.13)
[2018-06-22 05:09] LABS: Albumin 1.3 g/dL (3.4-5.0)
[2018-06-22 05:17] LABS: Potassium 2.6 mmol/L (3.5-5.1)
[2018-06-22] MEDS: SODIUM CHLORIDE 0.9% 1,000 ML IV SCH ×4 (05:18→22:21)
[2018-06-22 05:19] LABS: Red Cell Distribution Width 31.5 % (11.8-14.3)
[2018-06-22 05:20] LABS: Basophils % (manual) 0 (0.0-2.0); Blast Cells 0; Eosinophils % (manual) 0 (0-7); Metamyelocytes % 0; Myelocytes % 0; Promyelocytes % 0; Reactive Lymphocytes 0
[2018-06-22 05:21] LABS: BUN/Creatinine Ratio 34.3; Bilirubin, Total 27.9 mg/dL (0.2-1.0); Total Protein 3.7 g/dL (6.4-8.2)
[2018-06-22] MEDS: PIPERACILLIN-TAZOB 3.375GM 100 ML IV SCH ×3 (06:09→17:11)
[2018-06-22 06:30] LABS: Band Neutrophils % (manual) 3
[2018-06-22 06:34] LABS: Lymphocytes % (manual) 18 (10.0-50.0); Monocytes % (manual) 3 (0-12)
[2018-06-22] MEDS: POTASSIUM CHL 20MEQ/100ML 100 ML IV SCH ×3 (06:57→13:36)
[2018-06-22 07:30] VITALS: BP 122/65
[2018-06-22] MEDS: PANTOPRAZOLE 40 MG/10 ML VIAL IV SCH (10:00)
[2018-06-22] MEDS: PHYTONADIONE (VIT K)10 MG/ML 1ML VIAL SUBCUT SCH (10:01)
[2018-06-22 12:00] VITALS: BP 132/70
[2018-06-22] MEDS: VANCOMYCIN 750 MG in D5W 5% 250 ML IV SCH (14:57)
[2018-06-22 16:00] VITALS: BP 110/71
[2018-06-22 20:00] VITALS: BP 114/70
[2018-06-23] VITALS: BP 125/59
[2018-06-23] MEDS: PIPERACILLIN-TAZOB 3.375GM 100 ML IV SCH ×5 (00:09→23:37)
[2018-06-23 04:00] VITALS: BP 130/62
[2018-06-23] MEDS: SODIUM CHLORIDE 0.9% 1,000 ML IV SCH ×3 (05:05→21:07)
[2018-06-23 05:12] LABS: Hematocrit 24.8 % (36.0-46.0); Hemoglobin 8.6 g/dL (12.2-16.2); Mean Corpuscular Hemoglobin 31.9 pg (28.0-32.0); Mean Corpuscular Hgb Conc. 34.6 g/dL (32.0-36.0); Platelet Count (auto) 168 10^3/uL (140-450); Red Blood Cells 2.69 10^6/uL (4.0-5.20); White Blood Cell 9.7 10^3/uL (4.4-10.8)
[2018-06-23 05:22] LABS: Red Cell Distribution Width 32.5 % (11.8-14.3)
[2018-06-23 05:23] LABS: Basophils % (manual) 0 (0.0-2.0); Blast Cells 0; Eosinophils % (manual) 0 (0-7); Myelocytes % 0; Promyelocytes % 0; Reactive Lymphocytes 0
[2018-06-23 05:30] LABS: Albumin 1.3 g/dL (3.4-5.0); Calcium 6.6 mg/dL (8.5-10.1)
[2018-06-23 05:33] LABS: BUN/Creatinine Ratio 27.6
[2018-06-23 05:36] LABS: Potassium 2.6 mmol/L (3.5-5.1)
[2018-06-23 05:45] LABS: Bilirubin, Total 30.1 mg/dL (0.2-1.0)
[2018-06-23 06:37] LABS: Band Neutrophils % (manual) 3; Metamyelocytes % 1; Monocytes % (manual) 1 (0-12)
[2018-06-23 06:38] LABS: Lymphocytes % (manual) 10 (10.0-50.0)
[2018-06-23] MEDS ORDERED: POTASSIUM CHL 20MEQ/100ML 100 ML IV ONE (06:38)
[2018-06-23 06:46] LABS: Total Protein 3.8 g/dL (6.4-8.2)
[2018-06-23] MEDS: POTASSIUM CHL 20MEQ/100ML 100 ML IV SCH ×2 (07:11→08:25)
[2018-06-23 08:00] VITALS: BP 138/61
[2018-06-23] MEDS: PANTOPRAZOLE 40 MG/10 ML VIAL IV SCH (09:33)
[2018-06-23] MEDS: URSODIOL 300 MG CAP PO SCH ×2 (12:24→23:37)
[2018-06-23 13:00] VITALS: BP 146/75
[2018-06-23] MEDS: VANCOMYCIN 750 MG in D5W 5% 250 ML IV SCH (15:00)
[2018-06-23 17:00] VITALS: BP 116/59
[2018-06-23 21:30] VITALS: BP 112/50
[2018-06-24 05:00] VITALS: BP 100/43
[2018-06-24] MEDS: SODIUM CHLORIDE 0.9% 1,000 ML IV SCH (05:15)
[2018-06-24] MEDS: PIPERACILLIN-TAZOB 3.375GM 100 ML IV SCH (05:32)
[2018-06-24 05:54] LABS: Hemoglobin 8.5 g/dL (12.2-16.2)
[2018-06-24 06:04] LABS: Hematocrit 24.4 % (36.0-46.0); Mean Corpuscular Hemoglobin 31.8 pg (28.0-32.0); Mean Corpuscular Volume 90.8 fL (80.0-100.0); Platelet Count (auto) 148 10^3/uL (140-450); Red Blood Cells 2.69 10^6/uL (4.0-5.20); White Blood Cell 8.8 10^3/uL (4.4-10.8)
[2018-06-24 06:05] LABS: Red Cell Distribution Width 33.6 % (11.8-14.3)
[2018-06-24 06:06] LABS: Basophils % (manual) 0 (0.0-2.0); Blast Cells 0; Metamyelocytes % 0; Promyelocytes % 0; Reactive Lymphocytes 0
[2018-06-24 06:09] LABS: Albumin 1.1 g/dL (3.4-5.0); Calcium 6.9 mg/dL (8.5-10.1)
[2018-06-24 06:13] LABS: Total Protein 3.4 g/dL (6.4-8.2)
[2018-06-24 06:16] LABS: BUN/Creatinine Ratio 25.9
[2018-06-24 06:17] LABS: Potassium 2.4 mmol/L (3.5-5.1)
[2018-06-24] MEDS ORDERED: POTASSIUM EFFERVESENT TAB 25 MEQ PO ONE (06:45)
[2018-06-24] MEDS: POTASSIUM CHL 20MEQ/100ML 100 ML IV SCH ×3 (07:23→10:15)
[2018-06-24 08:30] VITALS: BP 95/41
[2018-06-24 08:57] LABS: Band Neutrophils % (manual) 1; Eosinophils % (manual) 3 (0-7); Lymphocytes % (manual) 5 (10.0-50.0); Monocytes % (manual) 2 (0-12); Myelocytes % 1
[2018-06-24] MEDS: PANTOPRAZOLE 40 MG/10 ML VIAL IV SCH (10:00)
[2018-06-24] MEDS ORDERED: POTASSIUM EFFERVESENT TAB 25 MEQ GT PRN (10:15)
[2018-06-24] MEDS: URSODIOL 300 MG CAP PO SCH (11:30)
[2018-06-24 11:45] LABS: Creatinine, Urine 23 mg/dL (30.0-125.0); Sodium Urine 40 mmol/L (40-220); Urine Bacteria FEW /hpf (None Seen); Urine Blood 3+ /uL (Negative); Urine Specific Gravity 1.016 (1.001-1.035); Urine WBC 4 /hpf (0 - 5)
[2018-06-24 12:09] VITALS: BP 108/47
[2018-06-24] MEDS: SOD CHL 0.9%/ KCL 40MEQ 1,000 ML IV SCH (13:09)
[2018-06-24] MEDS ORDERED: VANCOMYCIN 750 MG in D5W 5% 250 ML IV SCH (15:00)
[2018-06-24 16:58] VITALS: BP 109/59
[2018-06-24] MEDS: SPIRONOLACTONE 25 MG TAB PO SCH (18:35)
[2018-06-24 21:37] LABS: BUN/Creatinine Ratio 23.7; Calcium 6.6 mg/dL (8.5-10.1); Potassium 3.1 mmol/L (3.5-5.1)
[2018-06-24 22:55] VITALS: BP 100/43
[2018-06-25] MEDS: URSODIOL 300 MG CAP PO SCH ×3 (00:23→23:19)
[2018-06-25] MEDS: SOD CHL 0.9%/ KCL 40MEQ 1,000 ML IV SCH (00:23)
[2018-06-25] MEDS: SPIRONOLACTONE 25 MG TAB PO SCH ×2 (06:31→18:20)
[2018-06-25 09:00] VITALS: BP 140/71
[2018-06-25] MEDS: PANTOPRAZOLE 40 MG/10 ML VIAL IV SCH (10:53)
[2018-06-25 11:06] LABS: BUN/Creatinine Ratio 23.2; Calcium 7.7 mg/dL (8.5-10.1)
[2018-06-25] MEDS ORDERED: LEVOTHYROXINE SODIUM 25 MCG TAB PO ONE (11:15)
[2018-06-25 12:00] VITALS: BP 115/60
[2018-06-25] MEDS: POTASSIUM EFFERVESENT TAB 25 MEQ PO PRN (12:31)
[2018-06-25 16:00] VITALS: BP 124/65
[2018-06-25 17:43] LABS: BUN/Creatinine Ratio 23.3; Calcium 7.4 mg/dL (8.5-10.1); Potassium 3.1 mmol/L (3.5-5.1)
[2018-06-25 22:00] VITALS: BP 116/54
[2018-06-26 05:22] VITALS: BP 129/62
[2018-06-26] MEDS: SPIRONOLACTONE 25 MG TAB PO SCH ×2 (06:02→17:16)
[2018-06-26] MEDS: LEVOTHYROXINE SODIUM 25 MCG TAB PO SCH (06:02)
[2018-06-26 06:28] LABS: Alanine Aminotransferase 134 U/L (13-56); Albumin 1.3 g/dL (3.4-5.0); Aspartate Aminotransferase 200 U/L (15-37); BUN/Creatinine Ratio 25.2; Blood Urea Nitrogen 27 mg/dL (7-18); Carbon Dioxide 24 mmol/L (21-32); GFR African American 63 mL/min; GFR Non-African American 52 mL/min; Glucose 102 mg/dL (74-106)
[2018-06-26 06:52] LABS: Sodium 145 mmol/L (136-145)
[2018-06-26 06:54] LABS: Alkaline Phosphatase 879 U/L (45-117); Anion Gap 10 (5-15); Calcium 7.6 mg/dL (8.5-10.1); Chloride 111 mmol/L (98-107); Potassium 2.7 mmol/L (3.5-5.1)
[2018-06-26 06:55] LABS: Total Protein 3.8 g/dL (6.4-8.2)
[2018-06-26] MEDS: POTASSIUM EFFERVESENT TAB 25 MEQ PO PRN (07:02)
[2018-06-26 08:26] VITALS: BP 115/58
[2018-06-26] MEDS: PANTOPRAZOLE 40 MG TAB PO SCH (09:30)
[2018-06-26] MEDS ORDERED: POTASSIUM EFFERVESENT TAB 25 MEQ PO ONE (10:45)
[2018-06-26] MEDS ORDERED: predniSONE 20 MG TAB PO ONE (10:45)
[2018-06-26] MEDS ORDERED: MAGNESIUM SULFATE 1GM/100ML 100 ML IV ONE (10:45)
[2018-06-26] MEDS: URSODIOL 300 MG CAP PO SCH ×2 (11:43→21:47)
[2018-06-26 11:51] VITALS: BP 118/69
[2018-06-26 17:25] VITALS: BP 112/53
[2018-06-26] MEDS ORDERED: ENSURE CLEAR Mixed Berry 8oz Carton PO SCH (18:00)
[2018-06-26] MEDS ORDERED: Pro-Stat SF 30ml Vanilla PO SCH (18:00)
[2018-06-26 21:24] VITALS: BP 130/64
[2018-06-26] MEDS: ASCORBIC ACID 500 MG TAB PO SCH (21:47)
[2018-06-26] MEDS: Pro-Stat SF 30ml Vanilla PO SCH (22:24)
[2018-06-26] MEDS: ENSURE CLEAR Mixed Berry 8oz Carton PO SCH (22:25)
[2018-06-27 05:44] VITALS: BP 120/59
[2018-06-27] MEDS: LEVOTHYROXINE SODIUM 25 MCG TAB PO SCH (06:07)
[2018-06-27] MEDS: SPIRONOLACTONE 25 MG TAB PO SCH ×2 (06:08→19:16)
[2018-06-27 06:59] LABS: Albumin 1.4 g/dL (3.4-5.0); Calcium 7.7 mg/dL (8.5-10.1); Potassium 3.6 mmol/L (3.5-5.1)
[2018-06-27 07:25] LABS: Bilirubin, Total 29.5 mg/dL (0.2-1.0)
[2018-06-27 07:57] VITALS: BP 121/63
[2018-06-27] MEDS: ENSURE CLEAR Mixed Berry 8oz Carton PO SCH ×2 (08:00→18:00)
[2018-06-27] MEDS: Pro-Stat SF 30ml Vanilla PO SCH ×2 (08:00→18:00)
[2018-06-27 09:34] LABS: Hematocrit 29.4 % (36.0-46.0); Hemoglobin 9.6 g/dL (12.2-16.2); Mean Corpuscular Hemoglobin 31.1 pg (28.0-32.0); Mean Corpuscular Hgb Conc. 32.5 g/dL (32.0-36.0); Mean Corpuscular Volume 95.7 fL (80.0-100.0); Platelet Count (auto) 169 10^3/uL (140-450); Red Blood Cells 3.07 10^6/uL (4.0-5.20); White Blood Cell 13.1 10^3/uL (4.4-10.8)
[2018-06-27 10:20] LABS: Red Cell Distribution Width 33.2 % (11.8-14.3)
[2018-06-27 10:21] LABS: Band Neutrophils % (manual) 0; Basophils % (manual) 0 (0.0-2.0); Blast Cells 0; Eosinophils % (manual) 0 (0-7); Metamyelocytes % 0; Myelocytes % 0; Promyelocytes % 0; Reactive Lymphocytes 0
[2018-06-27 10:46] LABS: Lymphocytes % (manual) 5 (10.0-50.0); Monocytes % (manual) 4 (0-12)
[2018-06-27] MEDS: MULTIPLE VITAMIN TAB PO SCH (10:59)
[2018-06-27] MEDS: predniSONE 20 MG TAB PO SCH (10:59)
[2018-06-27] MEDS: POTASSIUM EFFERVESENT TAB 25 MEQ PO SCH (10:59)
[2018-06-27] MEDS: ASCORBIC ACID 500 MG TAB PO SCH ×2 (11:00→22:00)
[2018-06-27] MEDS: PANTOPRAZOLE 40 MG TAB PO SCH (11:00)
[2018-06-27] MEDS ORDERED: LORazepam 0.5 MG TAB PO PRN (11:15)
[2018-06-27] MEDS ORDERED: LORazepam 2MG/ML-1ML VIAL IV PRN (11:15)
[2018-06-27] MEDS ORDERED: MORPHINE SULFATE 4 MG/ML SYR/VIAL IV PRN ×2 (11:15)
[2018-06-27] MEDS ORDERED: TEMAZEPAM 15 MG CAP PO PRN (11:15)
[2018-06-27 12:24] VITALS: BP 110/56
[2018-06-27] MEDS: URSODIOL 300 MG CAP PO SCH ×2 (14:18→23:30)
[2018-06-27 17:00] VITALS: BP 97/45
[2018-06-27 21:34] VITALS: BP 111/68
[2018-06-28 05:19] VITALS: BP 113/51
[2018-06-28] MEDS: LEVOTHYROXINE SODIUM 25 MCG TAB PO SCH (07:03)
[2018-06-28] MEDS: SPIRONOLACTONE 25 MG TAB PO SCH ×2 (07:03→17:22)
[2018-06-28] MEDS: Pro-Stat SF 30ml Vanilla PO SCH ×2 (08:00→17:22)
[2018-06-28] MEDS: ENSURE CLEAR Mixed Berry 8oz Carton PO SCH ×2 (08:00→18:00)
[2018-06-28 09:00] VITALS: BP 124/63
[2018-06-28] MEDS: POTASSIUM EFFERVESENT TAB 25 MEQ PO SCH (09:30)
[2018-06-28] MEDS: PANTOPRAZOLE 40 MG TAB PO SCH (09:30)
[2018-06-28] MEDS: MULTIPLE VITAMIN TAB PO SCH (09:30)
[2018-06-28] MEDS: ASCORBIC ACID 500 MG TAB PO SCH (09:30)
[2018-06-28] MEDS: predniSONE 20 MG TAB PO SCH (09:31)
[2018-06-28 10:05] LABS: Albumin 1.5 g/dL (3.4-5.0); Calcium 8.3 mg/dL (8.5-10.1); Potassium 3.2 mmol/L (3.5-5.1)
[2018-06-28 10:27] LABS: BUN/Creatinine Ratio 29.1
[2018-06-28 10:28] LABS: Bilirubin, Total 30.8 mg/dL (0.2-1.0); Total Protein 4.3 g/dL (6.4-8.2)
[2018-06-28] MEDS: URSODIOL 300 MG CAP PO SCH ×2 (11:30→23:30)
[2018-06-28 13:04] VITALS: BP 120/60
[2018-06-28] MEDS ORDERED: PHYTONADIONE (VIT K)10 MG/ML 1ML VIAL SUBCUT ONE (13:30)
[2018-06-28 14:01] LABS: Hemoglobin 9.8 g/dL (12.2-16.2); Mean Corpuscular Hemoglobin 31.5 pg (28.0-32.0); Mean Corpuscular Hgb Conc. 32.6 g/dL (32.0-36.0); Mean Corpuscular Volume 96.8 fL (80.0-100.0); Platelet Count (auto) 209 10^3/uL (140-450); White Blood Cell 13.2 10^3/uL (4.4-10.8)
[2018-06-28 14:05] LABS: INR 1.05 (0.9-1.15); Partial Thromboplastin Time 32.5 sec (23.78-33.04); Prothrombin Time 11.2 sec (9.27-12.13)
[2018-06-28 14:07] LABS: Red Cell Distribution Width 32.7 % (11.8-14.3)
[2018-06-28 14:08] LABS: Band Neutrophils % (manual) 0; Basophils % (manual) 0 (0.0-2.0); Blast Cells 0; Eosinophils % (manual) 0 (0-7); Metamyelocytes % 0; Myelocytes % 0; Promyelocytes % 0; Reactive Lymphocytes 0
[2018-06-28 14:15] LABS: Lymphocytes % (manual) 3 (10.0-50.0); Monocytes % (manual) 2 (0-12)
[2018-06-28 17:04] VITALS: BP 124/62
[2018-06-28 22:00] VITALS: BP 106/56
[2018-06-29 05:00] VITALS: BP 113/61
[2018-06-29] MEDS: SPIRONOLACTONE 25 MG TAB PO SCH ×2 (06:00→17:46)
[2018-06-29] MEDS: LEVOTHYROXINE SODIUM 25 MCG TAB PO SCH (06:53)
[2018-06-29 09:00] VITALS: BP 117/53
[2018-06-29] MEDS ORDERED: POTASSIUM CHL 20 Meq TABLET PO ONE (10:30)
[2018-06-29] MEDS: POTASSIUM EFFERVESENT TAB 25 MEQ PO SCH (11:02)
[2018-06-29] MEDS: MULTIPLE VITAMIN TAB PO SCH (11:02)
[2018-06-29] MEDS: predniSONE 20 MG TAB PO SCH (11:03)
[2018-06-29] MEDS: PANTOPRAZOLE 40 MG TAB PO SCH (11:04)
[2018-06-29] MEDS: URSODIOL 300 MG CAP PO SCH ×2 (11:12→22:52)
[2018-06-29] MEDS: ENSURE CLEAR Mixed Berry 8oz Carton PO SCH ×2 (11:14→17:46)
[2018-06-29] MEDS: Pro-Stat SF 30ml Vanilla PO SCH ×2 (11:15→17:46)
[2018-06-29 13:00] VITALS: BP 96/51
[2018-06-29 16:57] VITALS: BP 107/56
[2018-06-29 21:37] VITALS: BP 120/64
[2018-06-30 04:45] VITALS: BP 121/58
[2018-06-30] MEDS: SPIRONOLACTONE 25 MG TAB PO SCH ×2 (05:43→17:55)
[2018-06-30] MEDS: LEVOTHYROXINE SODIUM 25 MCG TAB PO SCH (05:43)
[2018-06-30 07:25] LABS: Hematocrit 29.8 % (36.0-46.0); Hemoglobin 9.6 g/dL (12.2-16.2); Mean Corpuscular Hemoglobin 31.5 pg (28.0-32.0); Mean Corpuscular Hgb Conc. 32.3 g/dL (32.0-36.0); Mean Corpuscular Volume 97.5 fL (80.0-100.0); Platelet Count (auto) 220 10^3/uL (140-450); Red Blood Cells 3.05 10^6/uL (4.0-5.20); White Blood Cell 12.9 10^3/uL (4.4-10.8)
[2018-06-30 07:44] LABS: Albumin 1.4 g/dL (3.4-5.0); Calcium 8.2 mg/dL (8.5-10.1); Potassium 3.4 mmol/L (3.5-5.1)
[2018-06-30 07:51] LABS: Band Neutrophils % (manual) 0; Basophils % (manual) 0 (0.0-2.0); Blast Cells 0; Eosinophils % (manual) 0 (0-7); Metamyelocytes % 0; Myelocytes % 0; Promyelocytes % 0; Reactive Lymphocytes 0; Red Cell Distribution Width 31.2 % (11.8-14.3)
[2018-06-30 07:57] LABS: BUN/Creatinine Ratio 32.1; Bilirubin, Total 26.5 mg/dL (0.2-1.0); Phosphorus 2.9 mg/dL (2.5-4.90)
[2018-06-30 09:10] LABS: Lymphocytes % (manual) 20 (10.0-50.0); Monocytes % (manual) 3 (0-12)
[2018-06-30 09:13] VITALS: BP 113/61
[2018-06-30] MEDS: Pro-Stat SF 30ml Vanilla PO SCH ×2 (09:24→17:57)
[2018-06-30] MEDS: ENSURE CLEAR Mixed Berry 8oz Carton PO SCH ×2 (09:24→17:56)
[2018-06-30] MEDS: predniSONE 20 MG TAB PO SCH (11:18)
[2018-06-30] MEDS: PANTOPRAZOLE 40 MG TAB PO SCH (11:19)
[2018-06-30] MEDS: MULTIPLE VITAMIN TAB PO SCH (11:19)
[2018-06-30] MEDS: POTASSIUM EFFERVESENT TAB 25 MEQ PO SCH (11:19)
[2018-06-30] MEDS: URSODIOL 300 MG CAP PO SCH ×2 (11:45→23:30)
[2018-06-30] MEDS ORDERED: POTASSIUM CHL 20 Meq TABLET PO ONE (12:00)
[2018-06-30 17:15] VITALS: BP 92/58
[2018-06-30 21:46] VITALS: BP 95/52
[2018-07-01 04:57] VITALS: BP 92/41
[2018-07-01] MEDS: SPIRONOLACTONE 25 MG TAB PO SCH (06:00)
[2018-07-01 06:54] LABS: Hematocrit 27.1 % (36.0-46.0); Hemoglobin 8.6 g/dL (12.2-16.2); Mean Corpuscular Hemoglobin 31.6 pg (28.0-32.0); Mean Corpuscular Hgb Conc. 31.7 g/dL (32.0-36.0); Mean Corpuscular Volume 99.6 fL (80.0-100.0); Platelet Count (auto) 233 10^3/uL (140-450); Red Blood Cells 2.72 10^6/uL (4.0-5.20); White Blood Cell 17.3 10^3/uL (4.4-10.8)
[2018-07-01 06:55] LABS: Albumin 1.4 g/dL (3.4-5.0); BUN/Creatinine Ratio 28.4; Calcium 8.1 mg/dL (8.5-10.1); Potassium 4.5 mmol/L (3.5-5.1)
[2018-07-01 07:04] LABS: Red Cell Distribution Width 30.8 % (11.8-14.3)
[2018-07-01 07:05] LABS: Basophils % (manual) 0 (0.0-2.0); Blast Cells 0; Eosinophils % (manual) 0 (0-7); Metamyelocytes % 0; Myelocytes % 0; Promyelocytes % 0; Reactive Lymphocytes 0
[2018-07-01 07:06] LABS: Bilirubin, Total 25.7 mg/dL (0.2-1.0); Total Protein 3.8 g/dL (6.4-8.2)
[2018-07-01] MEDS: LEVOTHYROXINE SODIUM 25 MCG TAB PO SCH (07:55)
[2018-07-01] MEDS: ENSURE CLEAR Mixed Berry 8oz Carton PO SCH ×2 (08:00→16:45)
[2018-07-01] MEDS: Pro-Stat SF 30ml Vanilla PO SCH ×2 (08:00→16:45)
[2018-07-01 08:04] LABS: Band Neutrophils % (manual) 1; Lymphocytes % (manual) 14 (10.0-50.0); Monocytes % (manual) 2 (0-12)
[2018-07-01 09:00] VITALS: BP 77/48
[2018-07-01] MEDS: MULTIPLE VITAMIN TAB PO SCH (10:00)
[2018-07-01] MEDS: PANTOPRAZOLE 40 MG TAB PO SCH (10:00)
[2018-07-01] MEDS: predniSONE 20 MG TAB PO SCH (10:00)
[2018-07-01] MEDS ORDERED: D5W 5% 1,000 ML IV SCH (10:45)
[2018-07-01 11:29] LABS: Sodium Urine 17 mmol/L (40-220)
[2018-07-01] MEDS: URSODIOL 300 MG CAP PO SCH (11:30)
[2018-07-01 11:37] LABS: Creatinine, Urine 68 mg/dL (30.0-125.0)
[2018-07-01 13:00] VITALS: BP 79/55
[2018-07-01 13:39] LABS: Hepatitis B Surface Antigen Negative (Negative); Hepatitis C Antibody Negative (Negative)
[2018-07-01 17:00] VITALS: BP 98/59
== END 2018-07-01 18:35 | disposition expired | DRG 871 ==
LOC: ER 09:43 → TELE 09:44 → DOU IN ICU 23:09 → TELE-EAST 06-23 10:00 → EAST 06-28 00:53
PROVIDERS: ADMIT Internal Medicine; ATTEND Internal Medicine
PROC: 30233K1 Transfusion of Nonautologous Frozen Plasma into Peripheral Vein, Percutaneous Approach (ICD-10-PCS; principal; 2018-06-21)
PROC: 30233N1 Transfusion of Nonautologous Red Blood Cells into Peripheral Vein, Percutaneous Approach (ICD-10-PCS; 2018-06-21)
PROC: 30233L1 Transfusion of Nonautologous Fresh Plasma into Peripheral Vein, Percutaneous Approach (ICD-10-PCS; 2018-06-21)
DX: A41.9 Sepsis, unspecified organism (principal); N17.0 Acute kidney failure with tubular necrosis; E43 Unspecified severe protein-calorie malnutrition; K92.1 Melena; D68.9 Coagulation defect, unspecified; N13.2 Hydronephrosis with renal and ureteral calculous obstruction; E87.1 Hypo-osmolality and hyponatremia; T42.0X5A Adverse effect of hydantoin derivatives, initial encounter; N18.3 Chronic kidney disease, stage 3 (moderate); E03.9 Hypothyroidism, unspecified; R73.9 Hyperglycemia, unspecified; E87.6 Hypokalemia; D50.0 Iron deficiency anemia secondary to blood loss (chronic); G40.909 Epilepsy, unspecified, not intractable, without status epilepticus; K71.10 Toxic liver disease with hepatic necrosis, without coma; F02.80 Dementia in other diseases classified elsewhere, unspecified severity, without behavioral disturbance, psychotic disturbance, mood disturbance, and anxiety; G30.9 Alzheimer's disease, unspecified; I70.8 Atherosclerosis of other arteries; J44.9 Chronic obstructive pulmonary disease, unspecified; K44.9 Diaphragmatic hernia without obstruction or gangrene; Z51.5 Encounter for palliative care; Z66 Do not resuscitate; Z90.49 Acquired absence of other specified parts of digestive tract; Z88.6 Allergy status to analgesic agent; Z88.5 Allergy status to narcotic agent; Z79.899 Other long term (current) drug therapy; Z68.21 Body mass index [BMI] 21.0-21.9, adult
CPT/HCPCS: 36415; 36430; 36600; 71045; 74176; 76705; 80048; 80053; 80185; 81001; 82140; 82150; 82270; 82378; 82542; 82570; 82805; 83605; 83690; 83880; 84100; 84133; 84300; 84443; 84484; 85007; 85014; 85018; 85027; 85045; 85610; 85652; 85730; 86038; 86141; 86160; 86803; 86850; 86900; 86901; 86920; 87040; 87081; 87340; 93005; 96361; 96365; 96375; 97110; 97163; 97530; C9113; J2543; J3430; J3480; J7042; J7060